=== PATIENT | female | born 1995 | race Caucasian/White ===

== ENCOUNTER 2017-04-08 17:33 | Emergency (ER) | payer BC ==
[2017-04-08 17:47] VITALS: RESP 16
--- NOTE | 2017-04-08 17:54 | EDPHY ---
H & P Stated Complaint: Generalized abdominal pain 5 am. Diarrhea, red blood.Body aches. HPI/ROS: CHIEF COMPLAINT: Abdominal pain, Diarrhea, Body aches. HISTORY OF PRESENT ILLNESS: This patient is a 22 year old female complaining of abdominal bloating, nausea, and diarrhea onset around 5:00am this morning, 13 hours ago. She woke up with severe nausea. She has not vomited. She endorses multiple episodes of diarrhea throughout the day. The last few times she has noted red blood rather than any stool. She states she is due for her menstrual period soon, but is certain the blood is related to her bowel movements. She endorses subjective fever. She has not taken any over the counter mediations. Yesterday she woke with a swollen sore throat, and developed body aches by evening, and took Motrin for symptom relief. Today, her throat is still sore, but more of a scratchy feeling than pain. She was able to eat a bagel this morning, but has not eaten since then. She denies recent overseas travel, drinking from [place], sick contacts , or unusual food consumption. She did work at a [employer] over the summer, but has not changed anything about her routine and does not know of anyone with similar symptoms. She denies chest pain, shortness of breath, urinary complaints, or other associated symptoms. REVIEW OF SYSTEMS: A ten point review of systems was performed. She complains of chronic left hip pain which sometimes brings on associated nausea. ROS otherwise negative with the exception of the items mentioned in the HPI. Past medical history: ADHD (Adderall XR 4omg). Taking oral contraceptives. Past surgical history: Noncontributory Family history: Noncontributory Social history: [employer] student. Originally from [place]. Works at the [employer]. No alcohol or tobacco use. General Appearance: Alert. Vital signs reviewed. Eyes: Pupils equal and round, no conjunctival injection, no discharge. Anicteric. ENT, Mouth: Mucous membranes are moist. Mild oropharyngeal erythema, no exudates or edema. Neck: Lymphadenopathy, supple. Respiratory: Lungs are clear to auscultation; no wheezes, rales, or rhonchi. Cardiovascular: Regular rate and rhythm; no murmur, rub, or gallop. Gastrointestinal: Abdomen is soft and nontender, no masses or organomegaly, bowel sounds normal. Skin: Warm and dry, no rashes on exposed skin, normal color. Back: Nontender to palpation over the thoracolumbar spine. No CVAT. Extremities: No lower extremity edema, no calf tenderness or swelling. Neurological: Alert and oriented. Moving all four extremities easily and equally. Psychiatric: Normal affect. - Personal History LMP (Females 10-55): Now Current Tetanus/Diphtheria Vaccine: Unsure Current Tetanus Diphtheria and Acellular Pertussis (TDAP): Unsure - Medical/Surgical History Hx Asthma: No Hx Chronic Respiratory Disease: No Hx Diabetes: No Hx Cardiac Disease: No Hx Renal Disease: No Hx Cirrhosis: No Hx Alcoholism: No Hx HIV/AIDS: No Hx Splenectomy or Spleen Trauma: No Other PMH: ADHD - Social History Smoking Status: Never smoked Constitutional: Initial Vital Signs Temperature (C) 37.4 C 04/08/17 17:41 Heart Rate 70 04/08/17 17:41 Respiratory Rate 16 04/08/17 17:41 Blood Pressure 110/77 04/08/17 17:41 O2 Sat (%) 100 04/08/17 17:41 O2 Delivery Mode Room Air Allergies/Adverse Reactions: No Known Allergies Allergy (Unverified 04/08/17 17:47) Home Medications: Medication Instructions Recorded Adderall 30 mg Tablet 04/08/17 Medical Decision Making ED Course/Re-evaluation: 22 year old female presents with abdominal bloating, nausea, and diarrhea. She is afebrile and not tachycardic. Physical exam reveals mild pharyngeal erythema as well as lymphadenopathy. No abdominal tenderness. IV established. Plan to administer 4mg IV Zofran and 1L IV NS for dehydration/symptom relief. Plan for labs including CBC, BMP, BHCG, and UA. Plan for GI pathogen analysis if the patient can provide a stool sample. BCHG negative. UA negative for UTI.[Labs otherwise unremarkable. 19:00 Reassessed patient. She is feeling slightly better following Zofran and fluid administration. She has not had diarrhea. She does not require further IV hydration. 19:57 Plan to discharge home in good condition. Follow up and return precautions discussed. The patient is comfortable with this plan. She will provide OP stool sample. Differential Diagnosis: DDX of diarrhea including but not limited to viral or bacterial or protozoal infectious diarrhea, ulcerative colitis, regional enteritis, dietary indiscretion/food intolerance, diverticulitis, effect of medication, endocrine disorder. - Data Points Laboratory Results: Laboratory Results 04/08/17 18:17 04/08/17 18:17 Medications Given: Discontinued Medications Sodium Chloride (Ns) 1,000 mls @ 0 mls/hr IV EDNOW ONE; Wide Open PRN Reason: Protocol Stop: 04/08/17 18:09 Last Admin: 04/08/17 18:18 Dose: 1,000 mls Ondansetron HCl (Zofran) 4 mg IVP EDNOW ONE Stop: 04/08/17 18:09 Last Admin: 04/08/17 18:18 Dose: 4 mg Ondansetron HCl (Zofran Odt 4 Mg Prepack#2) 1 btl TAKEHOME EDNOW ONE Stop: 04/08/17 19:58 Last Admin: 04/08/17 20:05 Dose: 1 btl Departure - Departure Disposition: Home, Routine, Self-Care Clinical Impression: Gastroenteritis Condition: Good Instructions: Gastroenteritis (ED) Additional Instructions: 1. Follow up with your primary care provider for continued evaluation of symptoms. We have referred you to our primary care physician concrete bucket hooker, or you may follow up with Tommy if you prefer. 2. Stay well-hydrated. Take your Zofran as prescribed as needed for nausea. 3. Return to the emergency department for fever, severe abdominal pain, uncontrollable vomiting or diarrhea, or other worsening of condition. Referrals: [facility],. [Clinic] - As per Instructions Jayro Schultz MD [Medical Doctor] - As per Instructions Report Scribed for: Renetta Vazquez Report Scribed by: Ana Neff Date of Report: 04/08/17 Time of Report: 17:55 Physician Review and Approval Statement: 04/08/17 17:54 Portions of this note were transcribed by the medical imaging specialist. I, Dr. Renetta Vazquez, personally performed the history, physical exam, and medical decision- making; and confirmed the accuracy of the information in the transcribed note.
[2017-04-08] MEDS ORDERED: ONDANSETRON 4 MG/2 ML VIAL IVP ONE (18:08)
[2017-04-08] MEDS ORDERED: NS 1,000 ML IV ONE (18:08)
[2017-04-08] MEDS ORDERED: ONDANSETRON 4 MG/2 ML VIAL ONE (18:09)
[2017-04-08 18:21] LABS: COLOR COLORLESS; LEUKOCYTE ESTERASE,URINE NEGATIVE (NEGATIVE); NITRITE,URINE NEGATIVE (NEGATIVE)
[2017-04-08 18:25] LABS: % IMMATURE GRANULYOCYTES 0.4 % (0.0-1.1); ABSOLUTE IMMATURE GRANULOCYTES 0.02 10^3/uL (0.00-0.10); ADD DIFF? NO; ADD MORPH? NO; ADD SCAN? NO; ATYPICAL LYMPHOCYTE FLAG 50 (0-99); FRAGMENT RBC FLAG 10 (0-99); HEMOGLOBIN 12.4 g/dL (12.6-16.3); LEFT SHIFT FLG 10 (0-99); LIPEMIA HEMOLYSIS FLAG 80 (0-99); MEAN CELL HEMOGLOBIN CONCENTR. 33.5 g/dL (32.4-36.7); MEAN CELL VOLUME 89.4 fL (81.5-99.8); MEAN PLATELET VOLUME 9.3 fL (8.7-11.7); PLATELET CLUMPS FLAG 0 (0-99); PLATELET COUNT 294 10^3/uL (150-400); RED BLOOD CELL COUNT 4.14 10^6/uL (4.18-5.33); RED CELL DISTRIBUTION WIDTH 12.2 % (11.5-15.2)
[2017-04-08 18:36] LABS: ANION GAP 11 mEq/L (8-16); CALCIUM 8.8 mg/dL (8.5-10.4); CARBON DIOXIDE 23 mEq/l (22-31); CHLORIDE 104 mEq/L (97-110); CREATININE 0.6 mg/dL (0.6-1.0); GLOMERULAR FILTRATION RATE > 60; GLUCOSE 89 mg/dL (70-100); POTASSIUM 3.6 mEq/L (3.5-5.2); SODIUM 138 mEq/L (134-144)
[2017-04-08] MEDS ORDERED: ONDANSETRON 4MG PREPACK#2 BTL TAKEHOME ONE (19:57)
[2017-04-08 20:13] VITALS: BP 108/74; PULSE 58; TEMP 98.4; O2SAT 98
== END 2017-04-08 20:11 | disposition home or self-care (01) ==
DX: K52.9 Noninfective gastroenteritis and colitis, unspecified (principal); E86.9 Volume depletion, unspecified
CPT/HCPCS: 96374; J2405

== ENCOUNTER 2017-07-12 01:51 | Emergency (ER) | payer BC ==
[2017-07-12 02:01] VITALS: BP 122/90; PULSE 97; RESP 16; TEMP 98.8; O2SAT 97
--- NOTE | 2017-07-12 02:06 | EDPHY ---
H & P Stated Complaint: poss tampon left in vagina since sunday HPI/ROS: HPI CHIEF COMPLAINT: Possible retained tampon. HISTORY OF PRESENT ILLNESS: This patient very pleasant 22-year-old female otherwise healthy no significant medical history presents emergency room stating that she is unsure if she still has a tampon in from placing tampon at the end of her period On Sunday. She is unsure if she still has in. She denies any pelvic pain or abdominal pain. Denies fever vomiting. She does not improve was removed or not. Past Medical History: No significant medical history Past Surgical History: No significant surgical history Social History: Denies daily use drugs alcohol tobacco products. Family History: Noncontributory. ROS REVIEW OF SYSTEMS: A comprehensive 10 point review of systems is otherwise negative aside from elements mentioned in the history of present illness. Exam Constitutional appears well nontoxic triage nursing summary reviewed, vital signs reviewed, awake/alert. Eyes normal conjunctivae and sclera, EOMI, PERRLA. HENT normal inspection, atraumatic, moist mucus membranes, no epistaxis, neck supple/ no meningismus, no raccoon eyes. Respiratory clear to auscultation bilaterally, normal breath sounds, no respiratory distress, no wheezing. Cardiovascular rate normal, regular rhythm, no murmur, no edema, distal pulses normal. Gastrointestinal soft, non-tender, no rebound, no guarding, normal bowel sounds, no distension, no pulsatile mass. Genitourinary no CVA tenderness. Vaginal exam: Performed with Elizabeth RN as director instructional material, no visible foreign body cervix closed. No lesions. No trauma. Some dark blood in the posterior vault. No foreign body seen. No retained tampon. Unremarkable pelvic exam. Musculoskeletal no midline vertebral tenderness, full range of motion, no calf swelling, no tenderness of extremities, no meningismus, good pulses, neurovascularly intact. Skin pink, warm, & dry, no rash, skin atraumatic. Neurologic awake, alert and oriented x 3, AAOx3, moves all 4 extremities equally, motor intact, sensory intact, CN II-XII intact, normal cerebellar, normal vision, normal speech. Psychiatric normal mood/affect. Heme/Lymph/Immune no lymphadenopathy. Differential Diagnosis: Includes but is not limited to in a particular order retain tampon, retained foreign body. Medical Decision Making: Plan for this patient pelvic exam to rule out retained tampon or foreign body. Re-evaluation: 0216: Patient resting comfortably no acute distress. Normal vital signs. Pelvic exam unremarkable. No visible foreign body or retained tampon. 0253: Return precautions given. He understands return emergency room if she has any worsening symptoms questions or concerns. Source: Patient - Personal History LMP (Females 10-55): 1-7 Days Ago Current Tetanus/Diphtheria Vaccine: Yes Current Tetanus Diphtheria and Acellular Pertussis (TDAP): Yes - Medical/Surgical History Hx Asthma: No Hx Chronic Respiratory Disease: No Hx Diabetes: No Hx Cardiac Disease: No Hx Renal Disease: No Hx Cirrhosis: No Hx Alcoholism: No Hx HIV/AIDS: No Hx Splenectomy or Spleen Trauma: No Other PMH: ADHD - Social History Smoking Status: Never smoked Constitutional: Initial Vital Signs Temperature (C) 37.1 C 07/12/17 01:54 Heart Rate 97 07/12/17 01:54 Respiratory Rate 16 07/12/17 01:54 Blood Pressure 122/90 H 07/12/17 01:54 O2 Sat (%) 97 07/12/17 01:54 O2 Delivery Mode Room Air Allergies/Adverse Reactions: No Known Allergies Allergy (Verified 07/12/17 02:01) Home Medications: Medication Instructions Recorded Adderall 30 mg Tablet 04/08/17 Departure - Departure Disposition: Home, Routine, Self-Care Clinical Impression: Vaginal foreign body Qualifiers: Encounter type: initial encounter Qualified Code(s): T19.2XXA - Foreign body in vulva and vagina, initial encounter Condition: Good Instructions: Vaginal Foreign Body (ED) Additional Instructions: 1. We did not see a vaginal foreign body. There is no evidence of retained tampon or other foreign body in your vagina. 2. Return emergency room if you have any worsening symptoms questions or concerns. Referrals: NONE *PRIMARY CARE P,. [Primary Care Provider] - As per Instructions
== END 2017-07-12 02:53 | disposition home or self-care (01) ==
DX: T19.2XXA Foreign body in vulva and vagina, initial encounter (principal); X58.XXXA Exposure to other specified factors, initial encounter; Y99.8 Other external cause status; Y93.89 Activity, other specified

== ENCOUNTER 2018-08-30 10:03 | Emergency (ER) | payer BC ==
[2018-08-30] MEDS ORDERED: ONDANSETRON DISINTEGRATING 4 MG TAB PO ONE (10:33)
[2018-08-30] MEDS ORDERED: FAMOTIDINE 20 MG TAB PO ONE (10:33)
[2018-08-30] MEDS ORDERED: LIDOCAINE 2% VISCOUS 15 ML UDCUP PO ONE (10:33)
[2018-08-30] MEDS ORDERED: HYOSCYAMINE SULFATE 0.125 MG TAB PO ONE (10:33)
[2018-08-30] MEDS ORDERED: MAG HYDROX/AL HYDROX/SIMETH 30 ML UDCUP PO ONE (10:33)
--- NOTE | 2018-08-30 10:33 | EDPHY ---
H & P Stated Complaint: Hematemesis Source: Patient Exam Limitations: No limitations - Personal History LMP (Females 10-55): 1-7 Days Ago Current Tetanus/Diphtheria Vaccine: Yes - Medical/Surgical History Hx Asthma: No Hx Chronic Respiratory Disease: No Hx Diabetes: No Hx Cardiac Disease: No Hx Renal Disease: No Hx Cirrhosis: No Hx Alcoholism: No Hx HIV/AIDS: No Hx Splenectomy or Spleen Trauma: No Other PMH: ADHD - Social History Smoking Status: Never smoked Time Seen by Provider: 08/30/18 10:28 HPI/ROS: HPI: This is a 23-year-old female who presents with Chief Complaint: 1 episode of dark colored vomit Location: GI Quality: Dark-colored vomiting Duration: Prior to arrival Signs and Symptoms: no fever, + nausea, + vomiting, + hematemesis, no blood in stool, no abdominal bloating, no diarrhea, no back pain, no urinary symptoms, no vaginal bleeding/discharge, no indigestion, no chest pain, no shortness of breath Timing: Acute Severity: Mild Context: Patient is a student at [employer] presents with taking her Adderall, Aleve and control pill this morning without any food or water. She reports that she felt a dull aching sensation approximately 10 min later in her epigastric area and then became nauseous. She reports she then vomited a small amount of her stomach contents including the pill fragments. She noted the vomit to be dark in color and she was concerned that this may be blood related. Does not drink alcohol. Does not use NSAIDs regularly. Denies any abdominal pain, fever, urinary symptoms, vaginal bleeding , vaginal discharge. She has tried nothing for the symptoms. No history of GERD or gastritis. Modifying Factors: None Comment: ROS: A comprehensive 10 system review of systems is otherwise negative aside from elements mentioned in the history of present illness. MEDICAL/SURGICAL/SOCIAL HISTORY: Medical history: Generally healthy. Does not take any regular medications. Surgical history: Denies Social history: Patient is originally from [place]. Senior at [employer]. Family history noncontributory. CONSTITUTIONAL: Extremely well-appearing young adult white female, awake and alert, no obvious distress HEENT: Atraumatic and normocephalic, PERRL, EOMI. Nares patent; no rhinorrhea; no nasal mucosal edema. Tympanic membranes clear. Oropharynx clear, no postpharyngeal edema or bleeding, no exudate and moist pink mucosa. Airway patent. No lymphadenopathy. No meningismus. Cardiovascular: Normal S1/S2, regular rate, regular rhythm, without murmur rub or gallop. PULMONARY/CHEST: Symmetrical and nontender. Clear to auscultation bilaterally. Good air movement. No accessory muscle usage. ABDOMEN: Soft, nondistended, nontender, no rebound, no guarding, no peritoneal signs, no masses or organomegaly. No CVAT. EXTREMITIES: 2/2 pulses, strength 5/5, no deformities, no clubbing, no cyanosis or edema. NEUROLOGICAL: no focal neuro deficits. GCS 15. SKIN: Warm and dry, no erythema. no rash. Good capillary refill. (Velma Patel) Constitutional: Initial Vital Signs Temperature (C) 36.9 C 08/30/18 10:08 Heart Rate 90 08/30/18 10:08 Respiratory Rate 18 08/30/18 10:08 Blood Pressure 153/95 H 08/30/18 10:08 O2 Sat (%) 98 08/30/18 10:08 O2 Delivery Mode Room Air Allergies/Adverse Reactions: No Known Allergies Allergy (Verified 08/30/18 10:10) Home Medications: Medication Instructions Recorded Adderall 30 mg Tablet 04/08/17 Ondansetron Odt [Zofran Odt 4 mg 4 mg PO Q4 PRN #12 tab 08/30/18 (*)] valACYclovir 08/30/18 Medical Decision Making ED Course/Re-evaluation: Vital signs reviewed and show elevated blood pressure upon arrival. Suspect this is medication induced nausea with GI irritation. Patient's abdomen is soft and nontender doubt surgical process. Chest x-ray and medications ordered Patient given p.o. Zofran, p.o. Pepcid, GI cocktail 1100: Chest x-ray my read shows no opacity, no effusion, no free air to indicate perforation, no widened mediastinum, no pneumothorax 1130: Reassessed patient who reports relief of symptoms. Eating and drinking without difficulty. I have advised patient to not take medications on an empty stomach and avoid NSAIDs. She was given a referral to a primary care provider. This patient was seen under the supervision of my secondary supervising physician. I evaluated care for this patient independently. Discussed this patient with Dr. Melo who did not see the patient. (Velma Patel) I did not see this patient while she was in the emergency department. However her care was discussed with the PA while the patient was in the department. I agree with treatment plan and management (Jaquan Melo) Differential Diagnosis: Differential diagnosis includes but is not limited to GERD, nausea secondary to medication administration, gastritis, peptic ulcer disease, perforation, GI bleeding. (Velma Patel) - Data Points Medications Given: Discontinued Medications Al Hydroxide/Mg Hydroxide (Maalox Susp) 30 ml PO ONCE ONE Stop: 08/30/18 10:34 Last Admin: 08/30/18 10:48 Dose: 30 ml Famotidine (Pepcid) 20 mg PO EDNOW ONE Stop: 08/30/18 10:34 Last Admin: 08/30/18 10:47 Dose: 20 mg Hyoscyamine Sulfate (Levsin, Hyomax-Sl) 0.25 mg PO ONCE ONE Stop: 08/30/18 10:34 Last Admin: 08/30/18 10:48 Dose: 0.25 mg Lidocaine (Lidocaine 2% Viscous) 15 ml PO ONCE ONE Stop: 08/30/18 10:34 Last Admin: 08/30/18 10:48 Dose: 15 ml Ondansetron HCl (Zofran Odt) 4 mg PO EDNOW ONE Stop: 08/30/18 10:34 Last Admin: 08/30/18 10:46 Dose: 4 mg Departure - Departure Disposition: Home, Routine, Self-Care Clinical Impression: Nausea and vomiting in adult Condition: Good Instructions: Acute Nausea and Vomiting (ED) Additional Instructions: Consume a minimum of 8-10 glasses of water or electrolyte fluid replacement drinks that include Gatorade, Powerade, Pedialyte. Eat a bland diet for the next 48 hours and then slowly advance as tolerated. Avoid NSAIDs which include Aleve, Motrin, ibuprofen, Advil. Take Zofran 1 tab every 4 hours as needed for nausea, vomiting. Take [id number] Zantac at bedtime for the next 7 days. Please establish care with primary care provider. A referral has been given. Referrals: Ethan Kenney MD [Medical Doctor] - As per Instructions Prescriptions: Ondansetron Odt [Zofran Odt 4 mg (*)] 4 mg PO Q4 PRN #12 tab PRN Reason: Nausea/Vomiting, Use 1st
[2018-08-30 11:19] VITALS: BP 139/96
== END 2018-08-30 11:19 | disposition home or self-care (01) ==
DX: R11.2 Nausea with vomiting, unspecified (principal)

== ENCOUNTER 2018-09-23 06:34 | Emergency (ER) | payer BC | END 2018-09-23 07:22 | disposition home or self-care (01) ==